=== PATIENT | male | born 1945 | race Caucasian/White ===

== ENCOUNTER 2021-10-01 13:38 | Emergency (ER) | payer MEDICARE, BC, SELFPAY ==
[2021-10-01 14:05] VITALS: BP 131/75; PULSE 91; RESP 16; TEMP 37.1; O2SAT 98; BMI 30.6
--- NOTE | 2021-10-01 14:40 | CRLHL7_ITS ---
For Patients: As a result of the Century Cures Act, medical imaging exams and procedure reports are released immediately into your electronic medical record. You may view this report before your referring provider. If you have questions, please contact your health care provider. Indication: Cough. Technique: Portable one-view AP upright x-ray of the chest. Comparison: None available Findings: There are some streaky opacities in the lung bases suggestive for fibrosis. No consolidation. No pleural fluid. Heart size and pulmonary vascularity within normal limits. No musculoskeletal abnormalities identified. Impression: Streaky bibasilar pulmonary parenchymal opacities which may represent fibrosis Dictated by Sandoval Clarke MD @ 10/01/2021 3:38:51 PM (Electronically Signed)
--- NOTE | 2021-10-01 14:40 | CRLHL7_ITS ---
For Patients: As a result of the Century Cures Act, medical imaging exams and procedure reports are released immediately into your electronic medical record. You may view this report before your referring provider. If you have questions, please contact your health care provider. Indication: Dizziness Technique: Noncontrast head CT Comparison: No comparison Findings: Axial noncontrast images through the brain parenchyma demonstrates no acute intracranial hemorrhage or mass. No midline shift. No abnormal extra-axial air or collections are seen paranasal sinuses mastoid air cells skull and scalp are unremarkable. Impression: No acute intracranial hemorrhage or mass. Please note that all CT scans at this facility use dose modulation, iterative reconstruction, and/or weight-based dosing when appropriate to reduce radiation dose to as low as reasonably achievable. Dictated by Beth Fernandes MD @ 10/01/2021 3:37:56 PM (Electronically Signed)
--- NOTE | 2021-10-01 14:49 | ED.GENADULT ---
HPI - General Adult General Time Seen by Provider: 14:49 Date Seen: 10/01/21 Chief complaint: Dizziness/Vertigo Stated complaint: Dizzy, pain in right arm, blurred vision Time Seen by Provider: 10/01/21 13:41 Source: patient and family Mode of arrival: ambulatory Limitations: no limitations History of Present Illness HPI narrative: Patient is a 72 for old gentleman who has been feeling unwell for proximally 2 weeks. Started approximately 3-4 days after he underwent a transrectal prostate biopsy. He was given Cipro pre to this. 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 He tells me yesterday he backed into her head door, something that he commonly can do without this issue occurring. He also was seen by GI recently 4 days ago, blood tests were done, this is for follow-up of his ulcerative colitis and celiac disease. He currently says these 2 are under control, he does not have any issues associated with this. T-max earlier this week was 101, slight cough is noted, slight weakness with this is noted overall, he has also had frequency of urination, he is brought in today by his [id number], for an assessment. Past history notable for attention, COPD, celiac disease, ulcerative colitis, had been taking COVID test that are negative, he has never before had COVID, as immunized fully. Did use some Tylenol, did note no difference with this. Onset (ago): week(s) Severity: moderate Related Data Home Medications Medication Instructions Recorded Confirmed atorvastatin 10 mg tablet mg 10/01/21 azathioprine 50 mg tablet mg 10/01/21 fluticasone 250 mcg-salmeterol 50 INHALATION 10/01/21 mcg/dose blistr powdr for inhalation lisinopril 10 mg tablet mg 10/01/21 tamsulosin 0.4 mg capsule mg PO 10/01/21 Allergies Allergy/AdvReac Type Severity Reaction Status Date / Time wheat Allergy Mild Verified 10/01/21 14:12 penicillin G Allergy Unknown Verified 10/01/21 14:12 Review of Systems Status of ROS: Reports: 10 or more systems reviewed and unremarkable except as noted in History and [facility] Hern[facility] Social History Smoking Status: Former smoker Do you use any of these nicotine containing products: None How often do you have a drink containing alcohol: monthly or less AUDIT-C Alcohol total score: 1 Non-prescribed substance use: denies use service: No Exam Const: Vital Signs, click to edit/add: Vital Signs - 24 hr 10/01/21 14:05 Temperature 98.7 F Pulse Rate [Left P ulse Oximeter] 91 Respiratory Rate 16 Blood Pressure [Ri ght Upper Arm] 131/75 Pulse Oximetry 98 Documenting provider has reviewed patient's vital signs: yes Common normals: no apparent distress, average body habitus, oriented x3, no limitations, healthy appearing, alert and well nourished HENMT: Common normals: normocephalic, head/scalp atraumatic, hearing grossly normal bilaterally, external ears normal, EAC's normal, TM's normal bilaterally, external nose normal, nasal mucous membranes and turbinates normal, moist oral mucous membranes, oropharynx normal, dentition normal and gingiva normal Head and scalp: normocephalic and atraumatic Nose: external nose normal and nasal mucous membranes and turbinates normal External ear: external ears normal External auditory canal: EAC's normal Tympanic membrane: TM's normal bilaterally Eye: Common normals: PERRL, EOMs intact bilaterally, conjunctivae normal, no scleral icterus, no papilledema, normal visual silva by confrontation and fundi normal bilaterally Conjunctiva: conjunctiva(e) normal Pupil: PERRL Direct Ophthalmoscopy: no papilledema and fundi normal bilaterally Neck & C-Spine: Common normals: full ROM, no lymphadenopathy, supple, no meningeal signs, no JVD, thyroid normal and no carotid bruits Thyroid: thyroid normal Lymph: Lymphatic: no lymphadenopathy noted Chest: Common normals: inspection of chest normal, palpation of chest normal, inspection of breasts normal and palpation of breasts normal Resp: Common normals: normal respiratory effort, no retractions, no use of accessory muscles and percussion normal Auscultation: wheezes Percussion: percussion normal Cardio: Common normals: no JVD, regular rate, regular rhythm, S1 normal heart sound, S2 normal heart sound, no gallops, no clicks, no murmurs, no rub and peripheral pulses 2+ throughout Rate: regular rate Rhythm: regular rhythm Heart sounds: S1 normal and S2 normal Peripheral pulses: pulses 2+ throughout GI: Common normals: Normal to inspection, nondistended, normoactive bowel sounds present, soft to palpation, non-tender, no hepatosplenomegaly, no masses and no bruits Palpation: soft and no hepatosplenomegaly : Common normals: no CVA tenderness Bladder/kidney exam: no CVA tenderness Back & Pelvis: Common normals: no CVA tenderness Extremity: Common normals: normal to inspection, full ROM, normal capillary refill, no joint enlargement, no clubbing, cyanosis or edema, no calf tenderness and no pedal edema Neuro: Common normals: oriented x3 Sensorium/orientation: alert Meningeal signs: no meningeal signs Psych: Common normals: mental status grossly normal Skin: Common normals: no rashes or lesions noted, no wounds, skin turgor normal, no jaundice, no petechiae and no mottling General skin exam: no rashes or lesions noted and turgor normal Course Vital Signs Vital signs: Initial Vital Signs Temperature 98.7 F 10/01/21 14:05 Temperature Source Temporal Artery Scan 10/01/21 14:05 Pulse Rate 91 10/01/21 14:05 Pulse Rhythm 10/01/21 14:05 Pulse Strength 3+ Normal 10/01/21 14:05 Respiratory Rate 16 10/01/21 14:05 Blood Pressure 131/75 10/01/21 14:05 Blood Pressure Mean 93 10/01/21 14:05 Blood Pressure Position Sitting 10/01/21 14:05 Pulse Oximetry 98 10/01/21 14:05 Oxygen Delivery Method 10/01/21 14:05 Vital Signs Temperature 98.7 F 10/01/21 14:05 Pulse Rate 91 10/01/21 14:05 Respiratory Rate 16 10/01/21 14:05 Blood Pressure 131/75 10/01/21 14:05 Pulse Oximetry 98 10/01/21 14:05 Temperature 98.7 F 10/01/21 14:05 Pulse Rate 91 10/01/21 14:05 Respiratory Rate 16 10/01/21 14:05 Blood Pressure 131/75 10/01/21 14:05 Pulse Oximetry 98 10/01/21 14:05 Medical Decision Making MDM Narrative Medical decision making narrative: Life-threatening differential diagnosis is include meningitis, encephalitis, pneumonia, intra-abdominal infection, bacteremia, other differential diagnosis include but are not limited to viral upper respiratory tract infection, strep, urinary tract infection, skin infection, osteomyelitis, influenza, fungal infections, diskitis, epidural abscess, or fever of unknown origin. I discussed with the patient and his [id number] fact is I do believe that this is related to the prostate biopsy. Another possibility would be the fibrotic changes in his lungs early pneumonia. I think it would be reasonable to treat him with Levaquin which gives good coverage for both things, and see how it goes. Blood cultures and urine culture are pending. He will watch for signs of worsening, and follow up early to mid next week with primary care. He will return here signs of worsening, Medical Records Medical records reviewed: Yes I reviewed the patient's medical records Lab Data Lab results reviewed: Yes I reviewed the patient's lab results Lab results narrative: White count slightly elevated at 11.75, hemoglobin normal. CRP very elevated at 25, urinalysis shows a little bit blood, negative leukocyte esterase, negative white cells. Point of care troponin 0. Basic metabolic profile pending, along with COVID swabs. Labs: Lab Results 10/01/21 10/01/21 10/01/21 Range/Units 14:41 14:41 14:45 WBC (4.50-11.00) K/uL RBC (4.30-5.90) m/uL Hgb (13.5-17.5) gm/dL Hct (37.0-53.0) % MCV (80-100) fL MCH (26-34) pg MCHC (32-36) gm/dL RDW Coeff of Rory (11.5-15.5) % Plt Count (140-440) K/uL Neut % (Auto) (42.0-72.0) % Lymph % (Auto) (20-44) % [place] % (Auto) (0.0-11.0) % Eos % (Auto) (0.0-7.0) % Baso % (Auto) (0.0-3.0) % Neut # (Auto) (1.7-7.0) K/uL Lymph # (Auto) (0.90-2.90) K/uL [place] # (Auto) (0.00-0.90) K/UL Eos # (Auto) (0.00-0.50) K/uL Baso # (Auto) (0.00-0.30) K/uL Abs Immat Gran (auto) (0.00-0.30) K/uL Sodium (135-149) mmol/L Potassium (3.6-5.1) mmol/L Chloride (96-114) mmol/L Carbon Dioxide (20-32) mmol/L BUN (7-30) mg/dL Creatinine (0.5-1.5) mg/dL Estimated Creat Clear Estimated GFR ml/min Glucose (60-115) mg/dL Calcium (8.4-10.6) mg/dL C-Reactive Protein (0.5-1.0) mg/dL Urine Color Yellow (Yellow) Urine Appearance Clear (Clear) Urine pH 6.5 (5.0-8.5) Ur Specific [place] 1.010 (1.000-1.030) Urine Protein Negative (Negative) Urine Glucose (UA) Negative (Negative) Urine Ketones Negative (Negative) Urine Blood 2+ A (Negative) Urine Nitrite Negative (Negative) Urine Bilirubin Negative (Negative) Urine Urobilinogen 1.0 (0.2-1.0) Ur Leukocyte Esterase Trace A (Negative) Urine RBC 5-10 A (0-2) Urine WBC 0-2 (0-5) Ur Squamous Epith Cells None (None-Few) Urine Bacteria None (None) SARS-CoV-2 (PCR) Negative SARS-CoV-2 (Negative) Influenza Type A (PCR) Negative PCR FLU A (Negative) Influenza Type B (PCR) Negative PCR FLU B (Negative) RSV (PCR) Negative PCR RSV (Negative) POC Troponin I 0.00 L (0.01-0.04) ng/ml 10/01/21 10/01/21 Range/Units 14:55 14:55 WBC 11.75 H (4.50-11.00) K/uL RBC 4.59 (4.30-5.90) m/uL Hgb 14.2 (13.5-17.5) gm/dL Hct 42.1 (37.0-53.0) % MCV 92 (80-100) fL MCH 31 (26-34) pg MCHC 34 (32-36) gm/dL RDW Coeff of Rory 14.1 (11.5-15.5) % Plt Count 228 (140-440) K/uL Neut % (Auto) 87.4 H (42.0-72.0) % Lymph % (Auto) 4.1 L (20-44) % [place] % (Auto) 7.5 (0.0-11.0) % Eos % (Auto) 0.6 (0.0-7.0) % Baso % (Auto) 0.1 (0.0-3.0) % Neut # (Auto) 10.30 H (1.7-7.0) K/uL Lymph # (Auto) 0.50 L (0.90-2.90) K/uL [place] # (Auto) 0.90 (0.00-0.90) K/UL Eos # (Auto) 0.10 (0.00-0.50) K/uL Baso # (Auto) 0.00 (0.00-0.30) K/uL Abs Immat Gran (auto) 0.04 (0.00-0.30) K/uL Sodium 132 L (135-149) mmol/L Potassium 3.9 (3.6-5.1) mmol/L Chloride 101 (96-114) mmol/L Carbon Dioxide 27 (20-32) mmol/L BUN 21 (7-30) mg/dL Creatinine 1.0 (0.5-1.5) mg/dL Estimated Creat Clear 62.70 Estimated GFR 79 ml/min Glucose 118 H (60-115) mg/dL Calcium 8.5 (8.4-10.6) mg/dL C-Reactive Protein 25.0 H (0.5-1.0) mg/dL Urine Color (Yellow) Urine Appearance (Clear) Urine pH (5.0-8.5) Ur Specific [place] (1.000-1.030) Urine Protein (Negative) Urine Glucose (UA) (Negative) Urine Ketones (Negative) Urine Blood (Negative) Urine Nitrite (Negative) Urine Bilirubin (Negative) Urine Urobilinogen (0.2-1.0) Ur Leukocyte Esterase (Negative) Urine RBC (0-2) Urine WBC (0-5) Ur Squamous Epith Cells (None-Few) Urine Bacteria (None) SARS-CoV-2 (PCR) (Negative) Influenza Type A (PCR) (Negative) Influenza Type B (PCR) (Negative) RSV (PCR) (Negative) POC Troponin I (0.01-0.04) ng/ml Imaging Data Chest x-ray: Attestation: I have reviewed the pertinent imaging results. My impression: Chest x-ray looks normal, there is some mild fibrosis/infiltrate at the bases. Radiologist's impression: Patient: JACKELINE NARAYANAN Facility:?[facility] Patient ID:?[id number] Site Patient ID:?[id number]. Site :?[id number] Study:?XRay Chest PORT CHEST-10/01/2021 3:29:56 PM Ordering Physician:Luis Garcia Final Report: Indication: Cough. Technique: Portable one-view AP upright x-ray of the chest. Comparison: None available Findings: There are some streaky opacities in the lung bases suggestive for fibrosis. No consolidation. No pleural fluid. Heart size and pulmonary vascularity within normal limits. No musculoskeletal abnormalities identified. Impression: Streaky bibasilar pulmonary parenchymal opacities which may represent fibrosis Dictated by Sandoval Clarke MD @ 10/01/2021 3:38:51 PM (Electronic Signature) Patient: JACKELINE [facility] Facility:?[facility] Patient ID:?[id number] Site Patient ID:?[id number] Site :?[id number] Study:?CT Head w/o Contrast-10/01/2021 3:28:09 PM Ordering Physician:Luis Garcia Final Report: Indication: Dizziness Technique: Noncontrast head CT Comparison: No comparison Findings: Axial noncontrast images through the brain parenchyma demonstrates no acute intracranial hemorrhage or mass. No midline shift. No abnormal extra-axial air or collections are seen paranasal sinuses mastoid air cells skull and scalp are unremarkable. Impression: No acute intracranial hemorrhage or mass. Please note that all CT scans at this facility use dose modulation, iterative reconstruction, and/or weight-based dosing when appropriate to reduce radiation dose to as low as reasonably achievable. Dictated by Beth Fernandes MD @ 10/01/2021 3:37:56 PM (Electronic Signature) ECG Data Attestation: I personally reviewed and interpreted this ECG as follows: Prior ECG tracings: not available for review Interpretation: EKG shows normal sinus rhythm otherwise normal EKG. Discharge Plan Discharge Clinical Impression: History of prostate biopsy, Dizziness Fever Qualifiers: Fever type: due to other condition Qualified Code(s): R50.81 - Fever presenting with conditions classified elsewhere Pneumonia Qualifiers: Pneumonia type: due to unspecified organism Laterality: bilateral Lung location: lower lobe of lung Qualified Code(s): J18.9 - Pneumonia, unspecified organism Patient Disposition: Home w/ Parent or Adult Condition: Stable Instructions: Fever in Adults (ED), Lightheadedness (ED), Dizziness (ED), Pneumonia (ED) Additional Instructions: Home rest off work till mid next week. I would like you take the antibiotics, as directed, cover pneumonia very well and hopefully cover if the organism is related to the prior prostate biopsy. We will grow both the urine and also the blood in see if this shows anything. Please be vigilant in if any signs of worsening condition then come back and be res seen. Please start taking the antibiotic tonight. He will need to be receding in early to mid next week, to ensure that your doing okay by primary care. Activity Level: Light activity Discharge Diet: Regular Prescriptions: No Action fluticasone propion-salmeterol 250-50 mcg/dose blister with device INHALATION 0RF atorvastatin 10 mg tablet 0RF Label Comments: TAKE 1 TABLET BY MOUTH ONCE DAILY azathioprine 50 mg tablet 0RF Label Comments: TAKE 3 TABLETS BY MOUTH ONCE DAILY tamsulosin 0.4 mg capsule PO 0RF Label Comments: TAKE 1 CAPSULE BY MOUTH ONCE DAILY AFTER A MEAL lisinopril 10 mg tablet 0RF Label Comments: TAKE 1 & 1/2 (ONE & ONE-HALF) TABLETS BY MOUTH ONCE DAILY Follow Up/Referrals: Octavio Nava MD [Primary Care Provider] - Stand Alone Forms: [employer] Info Instructions
--- NOTE | 2021-10-01 15:07 | PC.NURSE ---
urine, blood, covid test to lab, lab to room to draw second bc
[2021-10-01 15:16] LABS: Basophils Percent Auto 0.1 % (0.0-3.0); Eosinophils Percent Auto 0.6 % (0.0-7.0); Hematocrit 42.1 % (37.0-53.0); Hemoglobin* 14.2 gm/dL (13.5-17.5); Immature Granulocytes Abs Auto 0.04 K/uL (0.00-0.30); Lymphocytes Percent Auto 4.1 % (20-44); Mean Corpuscular HGB Conc 34 gm/dL (32-36); Mean Corpuscular Hemoglobin 31 pg (26-34); Mean Corpuscular Volume 92 fL (80-100); Monocytes Percent Auto 7.5 % (0.0-11.0); Neutrophils Percent Auto 87.4 % (42.0-72.0); Platelet Count* 228 K/uL (140-440); RDW Coefficient of Variation % 14.1 % (11.5-15.5); Red Blood Count 4.59 m/uL (4.30-5.90); White Blood Count* 11.75 K/uL (4.50-11.00)
[2021-10-01 15:20] LABS: Slide Review Reflex No
[2021-10-01 15:25] LABS: Appearance Urine Clear (Clear); Bilirubin Urine Negative (Negative); Blood Urine 2+ (Negative); Color Urine Yellow (Yellow); Glucose Urine Negative (Negative); Ketones Urine Negative (Negative); Leukocyte Esterase Urine Trace (Negative); Nitrite Urine Negative (Negative); Protein Urine Negative (Negative); pH Urine 6.5 (5.0-8.5)
[2021-10-01] MEDS: 0.9 % SODIUM CHLORIDE 1000 ml 1,000 ML IV (15:30)
[2021-10-01 15:33] LABS: Chloride* 101 mmol/L (96-114); Potassium* 3.9 mmol/L (3.6-5.1); Sodium* 132 mmol/L (135-149)
[2021-10-01 15:35] LABS: Estimated Glomerular Filt Rate 79 ml/min
[2021-10-01 15:36] LABS: Blood Urea Nitrogen* 21 mg/dL (7-30); Calcium* 8.5 mg/dL (8.4-10.6); Carbon Dioxide* 27 mmol/L (20-32); Glucose* 118 mg/dL (60-115)
[2021-10-01 15:42] LABS: WBC Urine 0-2 (0-5)
[2021-10-01 15:57] LABS: PCR FLU A Negative PCR FLU A (Negative); PCR FLU B Negative PCR FLU B (Negative); PCR RSV Negative PCR RSV (Negative); SARS PCR* Negative SARS-CoV-2 (Negative)
== END 2021-10-01 16:36 | disposition home or self-care (01) ==
PROVIDERS: Emergency Provider Family Medicine; PCP Family Medicine
DX: R42 Dizziness and giddiness (principal); R50.81 Fever presenting with conditions classified elsewhere; J18.9 Pneumonia, unspecified organism
CPT/HCPCS: 36415; 70450; 71045; 80048; 81001; 84484; 85025; 86140; 87040; 87086; 87502; 87634; 87635; 93005; 99285; J7030